=== PATIENT | female | born 1995 | race Caucasian/White ===

== ENCOUNTER 2016-09-10 00:41 | Inpatient (IN) | payer BC, MEDICAID ==
[~2016-09-10] VITALS: Ht 152.4 cm; Wt 78.5 kg
[2016-09-10 07:12] VITALS: BMI 33.8
[2016-09-10] MEDS: PLEASE ENTER HEIGHT AND WEIGHT XX SCH (07:15)
[2016-09-10] MEDS ORDERED: LIDOCAINE 1% BUFFERED 1 ML SYR INTRADERM PRN (07:20)
[2016-09-10] MEDS ORDERED: OXYTOCIN 15 UNITS/250 ML NS 250 ML IV SCH (07:20)
[2016-09-10] MEDS ORDERED: MORPHINE 5 MG/1 ML VIAL IV PRN (07:20)
[2016-09-10] MEDS ORDERED: LIDOCAINE 1% 30 ML PF INFILTRATE ONE (07:20)
[2016-09-10] MEDS ORDERED: PROMETHAZINE 25 MG/ML VIAL IV PRN (07:20)
[2016-09-10] MEDS ORDERED: PHARMACY TO DOSE GENTAMICIN IV PRN (07:20)
[2016-09-10] MEDS ORDERED: ALU/MAG/SIM 30 ML UDC PO PRN (07:20)
[2016-09-10] MEDS ORDERED: ONDANSETRON 4 MG VIAL IV PRN (07:20)
[2016-09-10] MEDS ORDERED: FAMOTIDINE 20 MG INJ IV PRN (07:20)
[2016-09-10] MEDS ORDERED: ACETAMINOPHEN 325 MG TAB PO PRN (07:20)
[2016-09-10] MEDS ORDERED: FAMOTIDINE 20 MG TAB PO PRN (07:20)
[2016-09-10] MEDS ORDERED: TERBUTALINE 1 MG/ML VIAL SUBQ PRN (07:20)
[2016-09-10] MEDS ORDERED: CLINDAMYCIN 900 MG in DEXTROSE 5% 50 ML IV PRN (07:20)
[2016-09-10] MEDS ORDERED: METOCLOPRAMIDE 10 MG/2 ML VIAL IV PUSH PRN (07:20)
[2016-09-10] MEDS: LACT RINGERS 1,000 ML IV SCH ×4 (07:20→22:48)
[2016-09-10] MEDS: VANCOMYCIN 1,000 MG in SODIUM CHLORIDE 0.9% 250 ML IV SCH ×2 (08:20→20:31)
[2016-09-10] MEDS ORDERED: GENTAMICIN 290 MG in SODIUM CHLORIDE 0.9% 100 ML IV PRN (09:25)
[2016-09-10] MEDS ORDERED: ROPIV/FENT 0.2%-2MCG/ML 100 ML EPIDURAL ONE (13:29)
[2016-09-10] MEDS ORDERED: FENTANYL 100 MCG/2 ML AMP ONE (13:30)
[2016-09-10] MEDS ORDERED: LACT RINGERS 500 ML IV PRN (14:15)
[2016-09-10] MEDS ORDERED: FENTANYL 100 MCG/2 ML AMP EPIDURAL ONE (14:15)
[2016-09-10] MEDS ORDERED: SODIUM CHLORIDE 0.9% 500 ML IV PRN (14:15)
[2016-09-10] MEDS ORDERED: LACT RINGERS 500 ML IV ONE (14:15)
[2016-09-10] MEDS: ROPIV/FENT 0.2%-2MCG/ML 100 ML EPIDURAL SCH ×2 (14:44→23:10)
[2016-09-10] MEDS ORDERED: **ONLY ANESTEHSIA MAY ORDER OPIATES WHILE ON EPIDURAL XX SCH (20:00)
[2016-09-11] VITALS (14 sets, daily range): BP systolic 87–122; RESP 16–20; TEMP 97.3–99
[2016-09-11] MEDS: OXYTOCIN 15 UNITS/250 ML NS 250 ML IV SCH ×2 (00:59→01:02)
[2016-09-11] MEDS ORDERED: METHYLERGONOVINE MAL 0.2 MG/ML AMP IM ONE (01:00)
[2016-09-11] MEDS ORDERED: TDaP 0.5 ML VIAL IM.VACC ONE (01:20)
[2016-09-11] MEDS ORDERED: OMNIPAQUE 240 MG/ML, 50 ML PO SCH (01:20)
[2016-09-11] MEDS: Ibuprofen 600 MG TAB PO SCH ×5 (01:20→23:42)
[2016-09-11] MEDS ORDERED: BISACODYL 10 MG SUPP RECTAL PRN (01:20)
[2016-09-11] MEDS ORDERED: OXYTOCIN 15 UNITS/250 ML NS 250 ML IV SCH (01:20)
[2016-09-11] MEDS ORDERED: MEASLES,MUMPS,RUBELLA VAC SUBQ.VACC ONE (01:20)
[2016-09-11] MEDS ORDERED: LACT RINGERS 1,000 ML IV SCH (01:20)
[2016-09-11] MEDS ORDERED: DERMOPLAST SPRAY TOPICAL PRN (01:20)
[2016-09-11] MEDS ORDERED: ZOLPIDEM 5 MG TAB PO PRN (01:20)
[2016-09-11] MEDS ORDERED: MAG HYDROX 30 ML UDC PO PRN (01:20)
[2016-09-11] MEDS ORDERED: DILAUDID 1 MG/ML AMP IV PRN (01:20)
[2016-09-11] MEDS ORDERED: NEB-ALBUTEROL 2.5 MG/3 ML INH PRN (01:30)
[2016-09-11] MEDS ORDERED: MISSING DOSE XX ONE (01:40)
[2016-09-11] MEDS: ASTRINGENT MED PADS 40'S TOPICAL PRN (02:32)
[2016-09-11] MEDS: MISOPROSTOL 200 MCG TAB PO SCH ×2 (02:33→06:33)
[2016-09-11] MEDS ORDERED: METHYLERGONOVINE MAL 0.2 MG/ML AMP ONE (03:27)
[2016-09-11] MEDS: DOCUSATE SOD 100 MG CAP PO SCH ×2 (08:46→21:48)
[2016-09-11] MEDS: PRENATAL VITAMIN TAB PO SCH (08:46)
[2016-09-11] MEDS: FAMOTIDINE 20 MG TAB PO SCH ×2 (08:46→21:48)
[2016-09-11] MEDS: FERROUS SULF 325 MG TAB PO SCH ×2 (08:46→21:48)
[2016-09-12 05:09] VITALS: BP_SYST 81; RESP 16; TEMP 97.6
[2016-09-12] MEDS: Ibuprofen 600 MG TAB PO SCH ×4 (05:54→23:25)
[2016-09-12] MEDS: DOCUSATE SOD 100 MG CAP PO SCH ×2 (09:21→20:46)
[2016-09-12] MEDS: FERROUS SULF 325 MG TAB PO SCH ×2 (09:21→20:46)
[2016-09-12] MEDS: FAMOTIDINE 20 MG TAB PO SCH ×2 (09:21→20:46)
[2016-09-12] MEDS: PRENATAL VITAMIN TAB PO SCH (09:21)
[2016-09-12 09:25] VITALS: BP_SYST 100; RESP 12; TEMP 98.1
[2016-09-12] MEDS: ASTRINGENT MED PADS 40'S TOPICAL PRN (12:33)
[2016-09-12 13:12] VITALS: BP_SYST 104; RESP 14; TEMP 98
[2016-09-12] MEDS ORDERED: TDaP 0.5 ML VIAL IM.VACC ONE (17:33)
[2016-09-12 17:57] VITALS: BP_SYST 115; RESP 14; TEMP 97.7
[2016-09-12 18:21] VITALS: BP_SYST 115; RESP 14; TEMP 97.7
[2016-09-13] MEDS: Ibuprofen 600 MG TAB PO SCH (05:03)
[2016-09-13 05:29] VITALS: BP_SYST 103; RESP 16; TEMP 97.8
[2016-09-13] MEDS: PRENATAL VITAMIN TAB PO SCH (09:01)
[2016-09-13] MEDS: DOCUSATE SOD 100 MG CAP PO SCH (09:01)
[2016-09-13] MEDS: FAMOTIDINE 20 MG TAB PO SCH (09:01)
[2016-09-13] MEDS: FERROUS SULF 325 MG TAB PO SCH (09:01)
[2016-09-13 09:12] VITALS: BP_SYST 103; RESP 14; TEMP 98
[2016-09-13] MEDS ORDERED: MEASLES,MUMPS,RUBELLA VAC SUBQ.VACC ONE (11:18)
== END 2016-09-13 11:59 | disposition home or self-care (01) | DRG 774 ==
LOC: LD 07:12 → OB 09-11 04:50
PROVIDERS: ADMIT Obstetrics & Gynecology; ATTEND Obstetrics & Gynecology
PROC: 10E0XZZ Delivery of Products of Conception, External Approach (ICD-10-PCS; principal; 2016-09-11)
PROC: 0KQM0ZZ Repair Perineum Muscle, Open Approach (ICD-10-PCS; 2016-09-11)
PROC: 0UQG0ZZ Repair Vagina, Open Approach (ICD-10-PCS; 2016-09-11)
PROC: 3E033VJ Introduction of Other Hormone into Peripheral Vein, Percutaneous Approach (ICD-10-PCS; 2016-09-11)
PROC: 10907ZC Drainage of Amniotic Fluid, Therapeutic from Products of Conception, Via Natural or Artificial Opening (ICD-10-PCS; 2016-09-11)
CPT/HCPCS: 74176; 82803; 85014; 85018; 85025; 86850; 86900; 86901; 90707; 96372